=== PATIENT | male | born 1975 | race Caucasian/White ===

== ENCOUNTER 2020-02-24 10:16 | Inpatient (IN) ==
[2020-02-24] MEDS ORDERED: NICODERM PATCH TD PRN (12:31)
[2020-02-24] MEDS ORDERED: DESYREL PO PRN (12:31)
[2020-02-24] MEDS ORDERED: TUBERSOL ID ONE (12:31)
[2020-02-24] MEDS ORDERED: MOTRIN PO PRN (12:31)
[2020-02-24] MEDS ORDERED: SENOKOT PO PRN (12:31)
[2020-02-24] MEDS ORDERED: PHENOBARBITAL IV PRN (12:31)
[2020-02-24] MEDS ORDERED: ZOFRAN IV PRN (12:31)
[2020-02-24] MEDS ORDERED: NICOTINE GUM BUCCAL PRN (12:31)
[2020-02-24] MEDS ORDERED: IMODIUM PO PRN ×2 (12:31)
[2020-02-24] MEDS ORDERED: MAALOX PLUS LIQUID PO PRN (12:31)
[2020-02-24] MEDS ORDERED: ZOFRAN IM PRN (12:31)
[2020-02-24] MEDS ORDERED: DULCOLAX PR PRN (12:31)
[2020-02-24] MEDS ORDERED: D5W 1,000 ML IV PRN (12:31)
[2020-02-24] MEDS ORDERED: SALINE LOCK IV FLUID XX ONE (13:03)
[2020-02-24] MEDS ORDERED: BENTYL PO PRN (13:03)
[2020-02-24 13:06] LABS: HEMATOCRIT 48.7 % (42.0-52.0); HEMOGLOBIN 15.9 g/dL (14.0-18.0); MCHC 32.6 g/dL (33-37); MCV 94.9 FL (81-99); MPV 9.6 FL (7.4-10.4); RBC 5.13 XMIL (4.7-6.1); RDW 14.1 % (11.5-14.5); WBC 3.45 X1000 (4.8-10.8)
[2020-02-24 13:15] LABS: AGAP 19; ALBUMIN 4.6 g/dL (3.5-5.0); ALKALINE PHOSPHATASE 99 U/L (32-122); AMYLASE 36 U/L (20-200); BUN 5 mg/dL (8-22); CALCIUM 8.8 mg/dL (8.8-10.2); CHLORIDE 100 mmol/L (98-107); COSMO 284; CREATININE 0.6 mg/dL (0.7-1.2); ESTIMATED GFR > 60; GLUCOSE 104 mg/dL (70-104); GOT 114 U/L (10-34); GPT 94 U/L (10-44); LIPASE 44 U/L (13-60); POTASSIUM 3.8 mmol/L (3.5-5.1); SODIUM 144 mmol/L (136-145); TCO2 25 mmol/L (25-35)
[2020-02-24 13:27] LABS: URINE SOURCE CLEAN CATCH
[2020-02-24 13:30] LABS: BILIRUBIN URINE NEGATIVE (NEGATIVE); BLOOD URINE NEGATIVE (NEGATIVE); COLOR YELLOW; GLUCOSE URINE NEGATIVE (NEGATIVE); KETONE URINE TRACE mg/dL (NEGATIVE); LEUKOCYTES URINE NEGATIVE (NEGATIVE); NITRITE URINE NEGATIVE (NEGATIVE); PH URINE 6.5; PROTEIN URINE TRACE mg/dL (NEGATIVE); SP GRAVITY URINE 1.009; TURBIDITY URINE CLEAR (CLEAR); UROBILINOGEN URINE NORMAL (NORMAL)
[2020-02-24 13:31] LABS: UR EPITHELIAL CELLS <10 /HPF (<10); URINE BACTERIA NEGATIVE /HPF; URINE RBC <10 /HPF (<10); URINE WBC <10 /HPF (<10)
[2020-02-24 13:37] LABS: INR 0.97; PROTIME 13.4 Seconds (11.0-16.0)
[2020-02-24 13:40] LABS: UR AMPHETAMINES QUAL NONE DETECTED (NONE DETECT); UR BARBITUATES QUAL NONE DETECTED (NONE DETECT); UR BENZODIAZEPIN QUAL PRESUMPTIVE POSITIVE (NONE DETECT); UR CANNABINOIDS QUAL NONE DETECTED (NONE DETECT); UR COCAINE QUAL NONE DETECTED (NONE DETECT); UR METHADONE QUAL NONE DETECTED (NONE DETECT); UR METHAMPHETAMINE QUAL NONE DETECTED (NONE DETECT); UR OPIATES QUAL NONE DETECTED (NONE DETECT); UR OXYCODONE QUAL NONE DETECTED (NONE DETECT); UR PCP QUAL NONE DETECTED (NONE DETECT); UR PROPOXYPHENE QUAL NONE DETECTED (NONE DETECT); UR TCA QUAL NONE DETECTED (NONE DETECT)
[2020-02-24] MEDS: LIBRIUM PO SCH ×2 (13:45→18:52)
[2020-02-24] MEDS: TYLENOL PO PRN (13:59)
[2020-02-24] MEDS: ROBAXIN PO PRN ×2 (14:00→22:06)
[2020-02-24] MEDS: ZOFRAN ODT PO PRN (14:00)
[2020-02-24] MEDS ORDERED: M.V.I.-12 10 ML, FOLIC ACID 1 MG, MAGNESIUM SULFATE 1 GM, THIAMINE 100 MG in NS 1,000 ML IV ONE (15:00)
[2020-02-24] MEDS: SEROQUEL PO PRN (22:06)
[2020-02-24] MEDS: ATARAX PO PRN (22:07)
[2020-02-25] MEDS: LIBRIUM PO SCH ×4 (01:52→19:54)
[2020-02-25] MEDS: VITAMIN B-1 PO SCH ×2 (07:51→09:32)
[2020-02-25] MEDS: LOPRESSOR PO SCH ×3 (07:51→20:20)
[2020-02-25] MEDS: FOLIC ACID PO SCH ×2 (07:51→09:32)
[2020-02-25] MEDS: THERA M PLUS PO SCH ×2 (07:51→09:32)
[2020-02-25] MEDS: ROBAXIN PO PRN (08:39)
[2020-02-25] MEDS ORDERED: ZOFRAN IV PRN (09:43)
[2020-02-25] MEDS ORDERED: TYLENOL PO PRN (09:43)
[2020-02-25] MEDS ORDERED: APRESOLINE IV PRN (09:57)
--- NOTE | 2020-02-25 10:26 | Diag Imaging Result Doc PS360 ---
EXAM: CHEST-PORTABLE 02/25/2020 HISTORY: dyspnea TECHNIQUE: AP portable at 1011 COMMENT: There is no evidence of acute cardiac or pulmonary disease. There are no previous studies. IMPRESSION: No evidence of acute disease. Electronically signed by Alban Jensen 02/25/2020 10:23 AM
--- NOTE | 2020-02-25 10:27 | PROGRESS NOTE ---
DATE: 02/25/2020 SUBJECTIVE: Patient had a somewhat eventful night last night. He had some coughing, congestion and shortness of breath. After much discussion, he does have sleep apnea. The patient occasionally uses CPAP at home but he is unclear where it is. Denies any fevers. Notes this happens every night. PHYSICAL EXAMINATION: Vital Signs: Reviewed. Blood pressure 198/100, pulse 105, respiratory 22, saturation 97% on 2 L. General: He is awake, alert. He is in no respiratory distress. Lungs are clear. HEENT: Normocephalic. Neck: Supple. Cardiovascular: Regular rate. Chest: Decreased due to body habitus. No crackles. No wheezing. No rhonchi. Abdomen: Soft. Morbidly obese. Extremities: He moves all extremities. ASSESSMENT: 1. Acute hypoxia due to untreated sleep apnea. 2. Untreated sleep apnea. 3. Morbid obesity. 4. Nausea. 5. Tremors. 6. Paresthesias. 7. Alcohol abuse withdrawal and stabilization. PLAN: We are going to continue patient in the hospital. We are going to start him on Zosyn, as he certainly could have aspirated given his level of inebriation upon admission. Start breathing treatments. I have discussed him to attempt to get the CPAP machine brought to the hospital. Will continue Librium. Continue to follow. Further orders as needed. cc: Bernabe Shaikh MD
--- NOTE | 2020-02-25 10:49 | HISTORY AND PHYSICAL ---
CHIEF COMPLAINT: Nausea. HISTORY OF PRESENT ILLNESS: The patient is a 44-year-old morbidly obese male, who presented to the hospital noting that he has been drinking heavily, has tremors and myalgias. States he cannot stop drinking due to withdrawal symptoms. SOCIAL HISTORY: Patient is on disability. He is single. Lives at home in [place]. PAST MEDICAL HISTORY: Hypertension, anxiety, depression, history of DTs during withdrawal, history of blackouts due to alcohol, history of seizures during withdrawal, history of fatty liver, sleep apnea, morbid obesity. MEDICATIONS: Metoprolol 50 daily, gabapentin 600, Melatonin. ALLERGIES: Trazodone caused priapism. REVIEW OF SYSTEMS: The CIWA score is 34 secondary to moderately anxious, anxiety, restless, moderate tremors, paresthesias, tactile disturbances, hallucinations both auditory and visual, history of seizures as well as blackouts during withdrawal, moderate headache, sweating. Denies any fevers or chills. Denies any focal weakness. Denies chest pains, palpitations. Denies headaches, blurred vision, change in vision. Denies any dysuria, urinary frequency. Does have frequent paresthesias and skin crawling. SUBSTANCE ABUSE HISTORY: Was in treatment in 2017 for 3 to 4 weeks, in 2019 for 7 days, each time only stayed sober about 3 months. Notes he has had relationship problems, financial problems, work problems, health problems, started drinking at a very early age, currently is drinking 2 L a day for the past 6 years, started smoking at 41, currently smokes occasionally. FAMILY HISTORY: Noncontributory. PHYSICAL EXAMINATION: VITAL SIGNS: Reviewed. GENERAL: Patient is awake, alert. He is in no current respiratory distress. HEENT: Normocephalic. NECK: Supple. CARDIOVASCULAR: Regular rate. CHEST: Clear. ABDOMEN: Soft. EXTREMITIES: Moves all extremities. NEUROLOGIC: No focal changes. SKIN: Warm, dry. No rashes. ASSESSMENT: 1. Nausea, vomiting. 2. Abdominal pain. 3. Morbid obesity. 4. Paresthesias. 5. Paroxysmal sweating. 6. Sleep apnea. 7. Hypertension. 8. Chronic anxiety. 9. Alcohol abuse withdrawal and stabilization. PLAN: We are going to continue patient in the hospital, place him on high-dose Librium taper, continue to follow, continue counseling. Once he is more sober, more awake, and alert, we will attempt to discuss use of medication- assisted therapy. cc: Bernabe Shaikh MD MTDD
[2020-02-25] MEDS: PRINIVIL PO SCH (11:07)
[2020-02-25] MEDS: ZOSYN 3.375 GM in NS 50 ML IV SCH ×3 (11:08→21:00)
[2020-02-25] MEDS: DUONEB (A & A) INH PRN (12:25)
[2020-02-25] MEDS: ZOFRAN ODT PO PRN ×2 (13:30→20:22)
[2020-02-25] MEDS: TYLENOL PO PRN (20:21)
[2020-02-25] MEDS: SEROQUEL PO PRN (20:21)
[2020-02-26] MEDS: LIBRIUM PO SCH ×4 (01:38→18:59)
[2020-02-26 02:44] LABS: HEMATOCRIT 43.1 % (42.0-52.0); HEMOGLOBIN 14.2 g/dL (14.0-18.0); MCH 31.3 PG (27-31); MCHC 32.9 g/dL (33-37); MCV 95.1 FL (81-99); MPV 9.7 FL (7.4-10.4); RBC 4.53 XMIL (4.7-6.1); RDW 13.5 % (11.5-14.5); WBC 5.87 X1000 (4.8-10.8)
[2020-02-26 02:58] LABS: AGAP 13; ALBUMIN 3.7 g/dL (3.5-5.0); ALKALINE PHOSPHATASE 76 U/L (32-122); BUN 6 mg/dL (8-22); CALCIUM 8.7 mg/dL (8.8-10.2); CHLORIDE 99 mmol/L (98-107); COSMO 275; CREATININE 0.6 mg/dL (0.7-1.2); ESTIMATED GFR > 60; GLUCOSE 99 mg/dL (70-104); GOT 71 U/L (10-34); GPT 65 U/L (10-44); MAGNESIUM 1.6 mg/dL (1.5-2.7); POTASSIUM 2.9 mmol/L (3.5-5.1); SODIUM 139 mmol/L (136-145); TCO2 27 mmol/L (25-35); TOTAL PROTEIN 6.4 g/dL (6.3-8.3)
[2020-02-26] MEDS: ZOSYN 3.375 GM in NS 50 ML IV SCH ×4 (03:52→21:24)
[2020-02-26] MEDS: PRINIVIL PO SCH ×3 (08:38→20:00)
[2020-02-26] MEDS: VITAMIN B-1 PO SCH (08:38)
[2020-02-26] MEDS: THERA M PLUS PO SCH (08:38)
[2020-02-26] MEDS: LOPRESSOR PO SCH ×2 (08:38→20:00)
[2020-02-26] MEDS: FOLIC ACID PO SCH (08:38)
[2020-02-26] MEDS ORDERED: KLOR-CON PO ONE (11:18)
[2020-02-26] MEDS: TYLENOL PO PRN (12:37)
[2020-02-26] MEDS: ZOFRAN ODT PO PRN (17:02)
[2020-02-26] MEDS: ATARAX PO PRN (20:01)
[2020-02-26] MEDS: ROBAXIN PO PRN (20:01)
[2020-02-26] MEDS: DUONEB (A & A) INH PRN (20:17)
[2020-02-26] MEDS: SEROQUEL PO PRN (21:56)
[2020-02-27] MEDS: LIBRIUM PO SCH ×4 (01:22→17:18)
[2020-02-27] MEDS: ZOSYN 3.375 GM in NS 50 ML IV SCH ×5 (04:00→21:30)
[2020-02-27] MEDS: THERA M PLUS PO SCH (08:41)
[2020-02-27] MEDS: FOLIC ACID PO SCH (08:41)
[2020-02-27] MEDS: LOPRESSOR PO SCH ×2 (08:42→20:41)
[2020-02-27] MEDS: VITAMIN B-1 PO SCH (08:42)
[2020-02-27] MEDS: PRINIVIL PO SCH ×2 (08:42→20:42)
--- NOTE | 2020-02-27 13:46 | PROGRESS NOTE ---
DATE: 02/27/2020 SUBJECTIVE: Patient notes that he is starting to feel a lot better. He is still on oxygen. He is still having cough and shortness of breath at night although he has a known history of sleep apnea. Symptoms are better during the day. PHYSICAL EXAMINATION: Vital Signs: Reviewed. He is afebrile. Pulse 80s, respiratory 20, and blood pressure much better at 140s/70s. General: Patient is a morbidly obese male who is in no respiratory distress. HEENT: Normocephalic. Neck: Supple. Cardiovascular: Regular rate. Chest: Clear. Abdomen: Soft. Obese. Extremities: Moves all extremities. Neurologic: No focal changes. Skin: Warm and dry. No rashes. ASSESSMENT: 1. Obstructive sleep apnea with nighttime hypoxia. 2. Morbid obesity. 3. Nausea. 4. Tremors. 5. Paresthesias. 6. Alcohol abuse withdrawal and stabilization. PLAN: We are going to continue patient in the hospital. Continue to wean Librium. Hopefully, home tomorrow if he tolerates. cc: Bernabe Shaikh MD
[2020-02-27] MEDS: ROBAXIN PO PRN (21:45)
[2020-02-28] MEDS: ZOSYN 3.375 GM in NS 50 ML IV SCH ×2 (03:37→09:37)
[2020-02-28] MEDS ORDERED: LIBRIUM PO SCH (09:00)
[2020-02-28] MEDS: LOPRESSOR PO SCH (09:44)
[2020-02-28] MEDS: THERA M PLUS PO SCH (09:44)
[2020-02-28] MEDS: FOLIC ACID PO SCH (09:44)
[2020-02-28] MEDS: PRINIVIL PO SCH (09:44)
[2020-02-28] MEDS: VITAMIN B-1 PO SCH (09:44)
[2020-02-28 11:29] VITALS: BP 148/94
[2020-02-28] MEDS ORDERED: REVIA PO SCH (12:45)
[2020-02-28 12:56] LABS: AGAP 11; ALBUMIN 3.8 g/dL (3.5-5.0); ALKALINE PHOSPHATASE 76 U/L (32-122); BUN 7 mg/dL (8-22); CALCIUM 9.2 mg/dL (8.8-10.2); CHLORIDE 99 mmol/L (98-107); COSMO 273; CREATININE 0.6 mg/dL (0.7-1.2); ESTIMATED GFR > 60; GLUCOSE 127 mg/dL (70-104); GOT 109 U/L (10-34); GPT 104 U/L (10-44); MAGNESIUM 1.7 mg/dL (1.5-2.7); POTASSIUM 3.6 mmol/L (3.5-5.1); SODIUM 137 mmol/L (136-145); TCO2 26 mmol/L (25-35); TOTAL PROTEIN 6.9 g/dL (6.3-8.3)
--- NOTE | 2020-02-28 18:36 | DISCHARGE SUMMARY ---
ADMISSION DATE: 02/24/2020 DISCHARGE DATE: 02/28/2020 DISCHARGE DIAGNOSES: 1. Nausea and vomiting. 2. Abdominal pain. 3. Hypoxic respiratory failure secondary to obstructive sleep apnea. 4. Obstructive sleep apnea. 5. Hypertension. 6. Morbid obesity. 7. Alcohol withdrawal and stabilization. CONSULTATIONS: None. PROCEDURES: None. BRIEF HOSPITAL COURSE: Patient is a 44-year-old male who presented to [facility] program secondary to nausea, vomiting, abdominal pain, myalgias, and paresthesias. The patient had been drinking heavily. He was having significant withdrawal symptoms. He was placed on high-dose Librium taper. Counseling was performed each day by myself. The patient did have some difficulty at night requiring oxygen. He does have known sleep apnea for which he has not been using his CPAP. Does state that he has at home. We did attempt to get him to bring it to the hospital, but that was unsuccessful. Continued oxygen at night, placed him on high-dose Librium taper, wean down as tolerated. On discharge, he is awake, alert. He is in no distress. His hypokalemia has resolved. He did have hypertension that was previously undiagnosed. Placed him on lisinopril 10 mg and increased to 20 mg, and his blood pressure was much better controlled, instead of 180s-190 systolic it was in the upper 130s-low 140s. DISPOSITION: Patient will be discharged home on lisinopril 20 mg daily and a short Librium taper. We will continue medication assisted therapy, naltrexone. Discussed with patient the use of Vivitrol, he declined. Will follow up outpatient with treatment facility of choice. Discussed the importance of treating his sleep apnea. Greater than 30 minutes was spent in total care. cc: Bernabe Shaikh MD
== END 2020-02-28 15:19 | disposition home or self-care (01) | DRG 896 ==
LOC: P.MEDSURG 11:25
PROVIDERS: ADMIT Family Medicine; ATTEND Family Medicine